=== PATIENT | female | born 1990 | race Hispanic/Latino ===

== ENCOUNTER 2019-02-02 08:44 | Emergency (ER) | payer BC ==
[~2019-02-02] VITALS: Ht 160 cm; Wt 90.0 kg
[2019-02-02] MEDS ORDERED: AMOXICILLIN500 MG PO (10:12)
[2019-02-02 10:47] VITALS: BP 106/60
== END 2019-02-02 10:45 | disposition home or self-care (01) | DRG 153 ==
LOC: ED 08:44
DX: J02.9 Acute pharyngitis, unspecified (principal)